=== PATIENT | female | born 1960 | race African-American/Black ===

== ENCOUNTER 2024-03-28 22:09 | Emergency (ER) | payer MEDICARE ==
[2024-03-28] MEDS ORDERED: Acetaminophen 500 MG TAB ONE (22:24)
[2024-03-28] MEDS ORDERED: Ibuprofen 200 MG TAB ONE (22:31)
[2024-03-28] MEDS ORDERED: Lidocaine 1% PF 5 ML VIAL ONE (22:39)
== END 2024-03-28 23:34 | disposition home or self-care (01) ==
LOC: BURERS 22:09
DX: S52.572A Other intraarticular fracture of lower end of left radius, initial encounter for closed fracture (principal); W01.0XXA Fall on same level from slipping, tripping and stumbling without subsequent striking against object, initial encounter
CPT/HCPCS: 29125; 99283